=== PATIENT | female | born 1970 | race Caucasian/White ===

== ENCOUNTER 2018-12-01 21:16 | Observation (INO) ==
[2018-12-01 21:47] LABS: Basophils # 0.1 10*3/uL (0.0-0.2); Basophils % 0.5 % (0.0-0.8); Eosinophils # 0.2 10*3/uL (0.0-0.87); Eosinophils % 1.3 % (0.00-10.9); Hematocrit 43.8 VOL% (35.7-47.0); Hemoglobin 14.1 GM/DL (12.0-16.0); Immature Granulocytes % 0.5 %; Immature Granulocytes Absolute 0.06 #; Lymphocytes % 43.2 % (21.3-54.2); Mean Corpuscular HGB Conc 32.2 GM/DL (32-36); Mean Corpuscular Volume 89.4 FL (87-102); Mean Platelet Volume 11.3 FL (9.6-12.0); Monocytes % 8.1 % (1.7-12.7); Neutrophils % 46.4 % (38.7-73.9); Platelet Count 277 T/CUMM (130-400); Red Cell Distribution Width 13.1 % (9.3-17.3); White Blood Count 11.5 T/CUMM (4-12)
[2018-12-01] MEDS ORDERED: MORPHINE 4 MG/1 ML VIAL IV STA (22:08)
[2018-12-01] MEDS ORDERED: ENOXAPARIN 100 MG/ML SYRINGE SUBCUT STA (22:08)
[2018-12-01] MEDS ORDERED: ALUM/MAG/SIMETH/LIDO VISC 1:1 30 ML BOTTLE PO STA (22:08)
[2018-12-01] MEDS ORDERED: NITROGLYCERIN 2% OINT 1 INCH/GM PACK TOP STA (22:08)
[2018-12-01] MEDS ORDERED: ONDANSETRON 4 MG/2 ML VIAL IV STA (22:08)
[2018-12-01] MEDS ORDERED: ASPIRIN 325 MG TABLET PO STA (22:08)
[2018-12-01 22:13] LABS: Alanine Aminotransferase 16 U/L (13-56); Albumin 3.7 G/DL (3.4-5.0); Alkaline Phosphatase 106 U/L (45-117); Aspartate Amino Transferase 6 U/L (0-37); Bilirubin,Total < 0.39 MG/DL (0.2-1.0); Blood Urea Nitrogen 8 MG/DL (7-18); Calcium 9.5 MG/DL (8.5-10.1); Glucose 126 MG/DL (74-106); Osmolality,Calculated 282.1 MOS/KG (273-304); Total Protein 7.2 G/DL (6.4-8.3)
[2018-12-01 22:31] LABS: INR 0.9; PT Patient Result 10.2 SECS
[2018-12-01] MEDS ORDERED: POTASSIUM CHLORIDE 20 MEQ TABLET PO STA (22:50)
[2018-12-01 22:56] LABS: Apearance,Urine CLEAR (Clear); Bilirubin,Urine Negative (Negative); Blood, Urine Moderate mg/dL (Negative); Glucose,Urine (UA) Negative (Negative); Ketones,Urine Negative (Negative); Nitrite,Urine Negative (Negative); Protein,Urine Negative; RBC,Urine <1 /HPF (0-4); Squamous Epithelial Cell,Urine Occasional /HPF (0-10); Urine Color Yellow (Yellow); Urine Specific Gravity 1.006 (1.001-1.035); Urine Urobilinogen < 2.0 EU/DL (0.2-1.0); WBC,Urine 1 /HPF (0-6)
[2018-12-01 23:00] LABS: Barbiturates Screen,Urine Negative (Negative); Benzodiazepines Screen,Urine Negative (Negative); Cannabinoid Screen,Urine Negative (Negative); Opiate Screen,Urine Negative (Negative); Phencyclidine Screen,Urine Negative (Negative)
[2018-12-01] MEDS ORDERED: ONDANSETRON 4 MG/2 ML VIAL IV PRN (23:28)
[2018-12-01] MEDS ORDERED: MORPHINE 4 MG/1 ML VIAL IV PRN (23:28)
[2018-12-01] MEDS ORDERED: FAMOTIDINE 20 MG TABLET PO PRN (23:40)
[2018-12-01] MEDS ORDERED: INDOMETHACIN 50 MG CAPSULE PO PRN (23:40)
[2018-12-01 23:54] LABS: Risk Ratio 5.17; VLDL CHOLESTEROL 31.8 MG/DL
[2018-12-02] MEDS ORDERED: ACETAMINOPHEN 325 MG TABLET PO PRN (01:44)
[2018-12-02] MEDS: NITROGLYCERIN 2% OINT 1 INCH/GM PACK TOP SCH ×2 (03:43→06:45)
[2018-12-02] MEDS ORDERED: amLODIPine 10 MG TABLET PO SCH (09:00)
[2018-12-02] MEDS ORDERED: ALLOPURINOL 300 MG TABLET PO SCH (09:00)
[2018-12-02] MEDS ORDERED: MED PO SCH (09:00)
[2018-12-02] MEDS ORDERED: PANTOPRAZOLE 40 MG TABLET PO SCH (09:00)
[2018-12-02] MEDS ORDERED: POTASSIUM CHLORIDE 20 MEQ TABLET PO SCH (09:00)
[2018-12-02] MEDS ORDERED: ATENOLOL 50 MG TABLET PO SCH (09:00)
[2018-12-02] MEDS ORDERED: ENOXAPARIN 120 MG/0.8 ML SYRINGE SUBCUT SCH (10:30)
[2018-12-02] MEDS ORDERED: REGADENOSON 0.4 MG/5 ML SYRINGE IV ONE (10:55)
[2018-12-02] MEDS ORDERED: POTASSIUM CHLORIDE 20 MEQ TABLET PO ONE (16:41)
[2018-12-02 16:58] VITALS: BP 95/51
[2018-12-02] MEDS ORDERED: cloNIDine 0.1 MG TABLET PO SCH (21:00)
[2018-12-02] MEDS ORDERED: SIMVASTATIN 10 MG TABLET PO SCH (21:00)
== END 2018-12-02 17:57 | disposition home or self-care (01) ==
LOC: N.ED 21:16 → N.EDINP 21:16 → N.4E 12-02 00:21
PROVIDERS: ADMIT Internal Medicine Nephrology; ATTEND Internal Medicine Nephrology